=== PATIENT | male | born 1980 | race Two or more races ===

== ENCOUNTER 2020-05-06 19:58 | Inpatient (IN) | payer SELFPAY ==
[~2020-05-06] VITALS: Ht 172.7 cm; Wt 61.0 kg
[2020-05-06] MEDS ORDERED: THIAMINE 100MG TABLET PO ONE (20:30)
[2020-05-06] MEDS ORDERED: SODIUM CHLORIDE FLUSH 10ML SYR IVF ONE (20:30)
[2020-05-06] MEDS ORDERED: SERT50TA28 PO (20:31)
[2020-05-06] MEDS ORDERED: LISI-167 PO (20:31)
[2020-05-06] MEDS ORDERED: NALT50TA PO (20:31)
[2020-05-06] MEDS ORDERED: THIAMINE 100MG TABLET ONE (20:33)
[2020-05-06 20:58] LABS: BASOPHILS # (AUTO) 0.02 x10^3/uL (0-0.1); BASOPHILS % (AUTO) 1 % (0-1); EOSINOPHILS # (AUTO) 0.01 x10^3/uL (0-0.4); EOSINOPHILS % (AUTO) 0 % (1-7); LYMPHOCYTES # (AUTO) 0.41 x10^3/uL (1-3.4); LYMPHOCYTES % (AUTO) 13 % (22-44); MD NO; MEAN CORPUSCULAR HEMOGLOBIN 34.3 pg (27.5-34.5); MEAN CORPUSCULAR HGB CONC 34.4 g/dL (33.2-36.2); MEAN CORPUSCULAR VOLUME 99.7 fL (81-97); MEAN PLATELET VOLUME 6.5 fL (7.4-10.4); MONOCYTES % (AUTO) 16 % (2-9); NEUTROPHILS # (AUTO) 2.27 x10^3/uL (1.8-6.8); NEUTROPHILS % (AUTO) 71 % (42-75); PLATELET COUNT 168 x10^3/uL (130-400)
[2020-05-06 21:05] LABS: ALANINE AMINOTRANSFERASE 168 U/L (12-78); ALBUMIN 3.9 g/dL (3.4-5.0); ANION GAP 11 mmol/L (5-15); CALCIUM 8.8 mg/dL (8.5-10.1); CHLORIDE 97 mmol/L (98-107); CREATININE 0.65 mg/dL (0.7-1.3)
[2020-05-06] MEDS ORDERED: LORazepam 2 MG/ML, 1ML ONE (21:05)
[2020-05-06 21:08] LABS: ALKALINE PHOSPHATASE 83 U/L (45-117); BILIRUBIN,TOTAL 1.1 mg/dL (0.2-1.0); TOTAL PROTEIN 7.9 g/dL (6.4-8.2)
[2020-05-06] MEDS ORDERED: LORazepam 2 MG/ML, 1ML IVPush ONE (21:30)
[2020-05-06] MEDS ORDERED: SODIUM CHLORIDE 0.9% 1,000ML IVBOLUS ONE (21:30)
[2020-05-06] MEDS ORDERED: LORazepam 1MG TABLET PO ONE (21:30)
[2020-05-06] MEDS ORDERED: FAMOTIDINE 20 MG/2 ML IVPush ONE (22:00)
[2020-05-06] MEDS ORDERED: MAALOX/HYOSCYAMINE/LIDOCAINE 45 ML BTL PO ONE (22:00)
[2020-05-06] MEDS ORDERED: MAALOX/HYOSCYAMINE/LIDOCAINE 45 ML BTL ONE (22:13)
[2020-05-06] MEDS ORDERED: FAMOTIDINE 20 MG/2 ML ONE (22:13)
--- NOTE | 2020-05-06 22:32 | NUR ---
Entry from 2109: Patient prsents to ER c/o shaking, pressure in stomach, nausea earlier, stiffness in hands. All symptoms started today. Denies nausea currently. Patient has a hx of ETOH abuse but wants to quit. Patient was prescribed Naltrexone which he started today however he also reports drinking alcohol today. Patient is tremulous. Respirations even and unlabored.
[2020-05-06] MEDS ORDERED: SODIUM CHLORIDE FLUSH 10ML SYR IVF PRN (23:00)
[2020-05-06] MEDS ORDERED: CHLORDIAZEPOXIDE 25 MG CAPSULE PO PRN (23:30)
[2020-05-06] MEDS: HEPARIN 5,000 UNITS/ML, 1ML SQ SCH (23:30)
[2020-05-06] MEDS ORDERED: ONDANSETRON 2MG/ML, 2ML IVPush PRN (23:30)
[2020-05-06] MEDS ORDERED: BISACODYL 10 MG SUPP PR PRN (23:30)
[2020-05-06] MEDS ORDERED: morphine SULFATE 10 MG/ML, 1ML IVPush PRN (23:30)
[2020-05-07 00:10] VITALS: BP 157/87
[2020-05-07] MEDS: LORazepam 2 MG/ML, 1ML IVPush PRN ×3 (00:49→08:09)
[2020-05-07] MEDS: THIAMINE 100MG TABLET PO SCH ×2 (00:49→09:00)
[2020-05-07] MEDS: LACTATED RINGERS 1,000 ML IV SCH ×2 (00:50→08:10)
[2020-05-07 06:37] VITALS: BP 166/96
[2020-05-07 06:51] LABS: BASOPHILS # (AUTO) 0.02 x10^3/uL (0-0.1); BASOPHILS % (AUTO) 1 % (0-1); EOSINOPHILS # (AUTO) 0.02 x10^3/uL (0-0.4); EOSINOPHILS % (AUTO) 0 % (1-7); LYMPHOCYTES # (AUTO) 0.56 x10^3/uL (1-3.4); LYMPHOCYTES % (AUTO) 12 % (22-44); MD NO; MEAN CORPUSCULAR HEMOGLOBIN 33.8 pg (27.5-34.5); MEAN CORPUSCULAR HGB CONC 33.8 g/dL (33.2-36.2); MEAN CORPUSCULAR VOLUME 99.8 fL (81-97); MEAN PLATELET VOLUME 6.7 fL (7.4-10.4); MONOCYTES # (AUTO) 0.78 x10^3/uL (0.2-0.8); MONOCYTES % (AUTO) 17 % (2-9); NEUTROPHILS # (AUTO) 3.12 x10^3/uL (1.8-6.8); NEUTROPHILS % (AUTO) 69 % (42-75); PLATELET COUNT 163 x10^3/uL (130-400); RED BLOOD COUNT 4.55 x10^6/uL (4.38-5.82); RED CELL DISTRIBUTION WIDTH 13.9 % (9.4-14.8)
[2020-05-07 06:59] LABS: ALBUMIN 3.7 g/dL (3.4-5.0); ANION GAP 10 mmol/L (5-15); CHLORIDE 100 mmol/L (98-107)
[2020-05-07 07:03] LABS: ALANINE AMINOTRANSFERASE 155 U/L (12-78); ALKALINE PHOSPHATASE 76 U/L (45-117); BILIRUBIN,TOTAL 1.9 mg/dL (0.2-1.0); CREATININE 0.73 mg/dL (0.7-1.3); TOTAL PROTEIN 7.5 g/dL (6.4-8.2)
[2020-05-07] MEDS: HEPARIN 5,000 UNITS/ML, 1ML SQ SCH ×2 (07:30→16:59)
[2020-05-07] MEDS: MULTIVITAMINS/MINERALS TABLET PO SCH (08:09)
[2020-05-07] MEDS: SERTRALINE 50MG TABLET PO SCH (08:09)
[2020-05-07] MEDS: LISINOPRIL 10 MG TABLET PO SCH (08:10)
[2020-05-07] MEDS ORDERED: FOLIC ACID 1 MG TABLET PO SCH (09:00)
[2020-05-07 12:56] VITALS: BP 160/89
[2020-05-07] MEDS ORDERED: MAGNESIUM SULFATE 1 GM, FOLIC ACID 1 MG, THIAMINE 200 MG, MVI ADULT 10 ML in D5%-0.9% N... IV SCH (13:00)
[2020-05-07] MEDS ORDERED: LORazepam 2 MG/ML, 1ML IV PRN ×4 (13:00)
[2020-05-07] MEDS ORDERED: LORazepam 0.5MG TABLET PO PRN (13:00)
[2020-05-07] MEDS ORDERED: LORazepam 1MG TABLET PO PRN ×3 (13:00)
[2020-05-07] MEDS ORDERED: CHLORDIAZEPOXIDE 25 MG CAPSULE PO SCH (13:00)
[2020-05-07] MEDS: SODIUM CHLORIDE 0.9% 1,000 ML IV SCH (13:19)
[2020-05-07] MEDS: PANTOPRAZOLE 40 MG IV IVPush SCH (13:20)
[2020-05-07] MEDS: CHLORDIAZEPOXIDE 5 MG CAPSULE PO SCH ×2 (18:00→21:35)
[2020-05-07 21:14] VITALS: BP 166/95
[2020-05-08 01:22] VITALS: BP 152/91
[2020-05-08] MEDS: PANTOPRAZOLE 40 MG IV IVPush SCH ×2 (01:30→13:43)
[2020-05-08] MEDS: HEPARIN 5,000 UNITS/ML, 1ML SQ SCH ×3 (01:31→17:14)
[2020-05-08] MEDS: SODIUM CHLORIDE 0.9% 1,000 ML IV SCH ×2 (01:31→08:16)
[2020-05-08 05:02] LABS: BASOPHILS # (AUTO) 0.01 x10^3/uL (0-0.1); BASOPHILS % (AUTO) 0 % (0-1); EOSINOPHILS # (AUTO) 0.05 x10^3/uL (0-0.4); EOSINOPHILS % (AUTO) 1 % (1-7); LYMPHOCYTES # (AUTO) 0.67 x10^3/uL (1-3.4); LYMPHOCYTES % (AUTO) 16 % (22-44); MD NO; MEAN CORPUSCULAR HEMOGLOBIN 34.3 pg (27.5-34.5); MEAN CORPUSCULAR HGB CONC 34.2 g/dL (33.2-36.2); MEAN CORPUSCULAR VOLUME 100.3 fL (81-97); MONOCYTES # (AUTO) 0.75 x10^3/uL (0.2-0.8); MONOCYTES % (AUTO) 18 % (2-9); NEUTROPHILS # (AUTO) 2.69 x10^3/uL (1.8-6.8); NEUTROPHILS % (AUTO) 65 % (42-75); PLATELET COUNT 151 x10^3/uL (130-400); RED BLOOD COUNT 4.39 x10^6/uL (4.38-5.82); RED CELL DISTRIBUTION WIDTH 13.7 % (9.4-14.8)
[2020-05-08 05:11] LABS: CHLORIDE 100 mmol/L (98-107)
[2020-05-08 05:18] LABS: ALANINE AMINOTRANSFERASE 146 U/L (12-78); ALBUMIN 3.6 g/dL (3.4-5.0); ALKALINE PHOSPHATASE 71 U/L (45-117); ANION GAP 10 mmol/L (5-15); BILIRUBIN,TOTAL 2.3 mg/dL (0.2-1.0); CALCIUM 9.1 mg/dL (8.5-10.1); CHOL/HDL RATIO 2.1; CHOLESTEROL, TOTAL 205 mg/dL (140-239); CREATININE 0.72 mg/dL (0.7-1.3); HDL CHOL % 49 % (26-37); HDL CHOLESTEROL (DIRECT) 100 mg/dL (40-60); LDL CHOLESTEROL,CALCULATED 92 mg/dL (54-169); LDL/HDL RATIO 0.9 (0.5-3.0); TOTAL PROTEIN 7.5 g/dL (6.4-8.2); TRIGLYCERIDES 64 mg/dL (50-200); VLDL CHOLESTEROL 13 mg/dL (0-25)
[2020-05-08] MEDS: CHLORDIAZEPOXIDE 5 MG CAPSULE PO SCH ×2 (05:48→11:23)
[2020-05-08 07:48] VITALS: BP_SYST 155; BP_SYST 168; BP_DIAS 101; BP_DIAS 105
[2020-05-08] MEDS: LISINOPRIL 10 MG TABLET PO SCH (08:16)
[2020-05-08] MEDS: SERTRALINE 50MG TABLET PO SCH (08:16)
[2020-05-08] MEDS: MULTIVITAMINS/MINERALS TABLET PO SCH (08:16)
[2020-05-08] MEDS: THIAMINE 200 MG, FOLIC ACID 1 MG, MVI ADULT 10 ML in SODIUM CHLORIDE 0.9% 1,000 ML IV SCH ×2 (10:30→18:37)
[2020-05-08 12:00] VITALS: BP_SYST 160; BP_SYST 163; BP_DIAS 101; BP_DIAS 97
[2020-05-08] MEDS: CHLORDIAZEPOXIDE 25 MG CAPSULE PO SCH ×3 (12:00→21:02)
[2020-05-08] MEDS ORDERED: LORazepam 2 MG/ML, 1ML IVPush PRN (12:00)
[2020-05-08] MEDS ORDERED: LISINOPRIL 10 MG TABLET PO ONE (13:30)
[2020-05-08] MEDS ORDERED: hydrALAzine 20 MG/ML, 1ML IV ONE (13:30)
[2020-05-08] MEDS ORDERED: LISINOPRIL 10 MG TABLET ONE (13:35)
[2020-05-08] MEDS ORDERED: hydrALAzine 20 MG/ML, 1ML IV PRN (15:00)
[2020-05-08 18:40] VITALS: BP 166/99
[2020-05-08 19:35] VITALS: BP 145/76
[2020-05-09] MEDS: HEPARIN 5,000 UNITS/ML, 1ML SQ SCH ×2 (00:51→09:45)
[2020-05-09] MEDS: PANTOPRAZOLE 40 MG IV IVPush SCH ×2 (00:51→13:27)
[2020-05-09 01:30] VITALS: BP 143/91
[2020-05-09 05:55] LABS: ALBUMIN 3.8 g/dL (3.4-5.0); ANION GAP 9 mmol/L (5-15); CALCIUM 9.3 mg/dL (8.5-10.1); CHLORIDE 102 mmol/L (98-107)
[2020-05-09 05:59] LABS: ALANINE AMINOTRANSFERASE 178 U/L (12-78); ALKALINE PHOSPHATASE 82 U/L (45-117); CREATININE 0.84 mg/dL (0.7-1.3); TOTAL PROTEIN 7.8 g/dL (6.4-8.2)
[2020-05-09 07:03] VITALS: BP 125/85
[2020-05-09] MEDS ORDERED: LISINOPRIL 20 MG TABLET PO SCH (09:00)
[2020-05-09] MEDS: CHLORDIAZEPOXIDE 25 MG CAPSULE PO SCH (09:45)
[2020-05-09] MEDS: MULTIVITAMINS/MINERALS TABLET PO SCH (09:45)
[2020-05-09] MEDS: SERTRALINE 50MG TABLET PO SCH (09:45)
[2020-05-09] MEDS ORDERED: GABA100C PO (12:23)
[2020-05-09] MEDS ORDERED: CHLO25CA9 PO (12:23)
== END 2020-05-09 15:22 | disposition home or self-care (01) | DRG 439 ==
LOC: ED 22:47 → EDIP 23:17 → 4EST 05-07 00:02
PROVIDERS: ADMIT Internal Medicine; ATTEND Family Medicine
DX: K85.20 Alcohol induced acute pancreatitis without necrosis or infection (principal); E87.1 Hypo-osmolality and hyponatremia; F10.239 Alcohol dependence with withdrawal, unspecified; I10 Essential (primary) hypertension; K76.0 Fatty (change of) liver, not elsewhere classified; Y90.4 Blood alcohol level of 80-99 mg/100 ml; K80.20 Calculus of gallbladder without cholecystitis without obstruction; D72.819 Decreased white blood cell count, unspecified; Z79.899 Other long term (current) drug therapy; Z79.1 Long term (current) use of non-steroidal anti-inflammatories (NSAID)
CPT/HCPCS: 36415; 99285; J3490; J7042; 76700; 80053; 80061; 80074; 80307; 83615; 83690; 83735; 84100; 85025; 93005; G0378; J1644; J2405; J3411; J3475; C9113; J0360; J2060; J7030; J7120